=== PATIENT | male | born 1980 | race Caucasian/White ===

== ENCOUNTER 2020-08-19 14:40 | Emergency (ER) | payer OTHER ==
[~2020-08-19] VITALS: Ht 193 cm; Wt 118.4 kg
[2020-08-19 14:41] VITALS: BP 130/65
[2020-08-19] MEDS ORDERED: ACETAMINOPHEN TAB 650MG DOSE (2X325MG) PO ONE (15:30)
[2020-08-19] MEDS ORDERED: KETOROLAC 60MG 2ML VIAL IM ONE (15:30)
[2020-08-19] MEDS ORDERED: ROBA750T4 PO (16:15)
[2020-08-19] MEDS ORDERED: MEDR4PAK PO (16:15)
[2020-08-19] MEDS ORDERED: CEPH500T PO (16:15)
[2020-08-19] MEDS ORDERED: NAPR-837 PO (16:15)
== END 2020-08-19 16:33 | disposition home or self-care (01) ==
LOC: M ED 14:40
DX: S39.012A Strain of muscle, fascia and tendon of lower back, initial encounter (principal); M54.31 Sciatica, right side; M51.36 Other intervertebral disc degeneration, lumbar region; X50.0XXA Overexertion from strenuous movement or load, initial encounter; Y93.H1 Activity, digging, shoveling and raking; Y92.9 Unspecified place or not applicable; Y99.9 Unspecified external cause status
CPT/HCPCS: 96372; 99282; J1885

== ENCOUNTER → 2021-05-28 | Outpatient (CLI) | payer OTHER ==
[~2021-05-28] MED LIST: CEPH500T PO; MEDR4PAK PO; NAPR-837 PO; ROBA750T4 PO
--- NOTE | 2021-05-29 09:37 | ECHO ---
ECHOCARDIOGRAM DATE OF PROCEDURE: 05/28/2021 Age: 41 Gender: Male Height: 76 inches Weight: 260 pounds Body Surface Area: 2.48 sq m Outpatient REFERRING PHYSICIAN: Mark Kaur INDICATION: Abnormal EKG MEASUREMENTS: 2D Measurements: RV - 4.4 cm LV - 5.2 cm Septum 1.2 cm Posterior wall 1.2 cm Aortic root 4.1 cm Ascending aorta 4.1 cm Aortic arch 2.9 cm LA - 4.2 cm LVEF 65% Doppler Measurements: AV - 1.05 m/s LVOT - 1.0 m/s LVOT diameter 2.2 cm MV-E 62, A 64, E/A ratio 1 Early mitral deceleration time 256 msec E prime medial 8.8, A prime medial 10.9, E prime lateral 12.9 Average E/E prime ratio 5.7/PCWP 9 mmHg PV 0.77 m/s Pulmonary artery acceleration time 134 msec PASP 22 mmHg IVC - 1.8 cm COMMENTS: Normal sinus rhythm without intraventricular conduction disturbance. Technically difficult study in light of the patient's body habitus but diagnostically useful information was still obtained. Borderline left ventricular hypertrophy with normal wall motion. Mildly dilated left atrium but currently normal Doppler assessment of left ventricular (LV) diastolic function and estimated mean left atrial pressure. Mildly dilated right heart chambers with normal wall motion and current estimated pulmonary arterial pressure. Normal inferior vena cava (IVC) size and collapse against an elevated central venous pressure. Mildly dilated aortic root and ascending aorta but normal aortic arch diameter. Normal-appearing and functioning valvular structures. No apparent intracardiac mass or pericardial effusion.
== END ==
LOC: M CARPUL 08:46
PROVIDERS: ATTEND Physician Assistant
DX: R94.31 Abnormal electrocardiogram [ECG] [EKG] (principal)